=== PATIENT | female | born 1980 | race Caucasian/White ===

== ENCOUNTER 2017-11-16 12:27 | Emergency (ER) | payer OTHER, SELFPAY ==
[2017-11-16] MEDS ORDERED: LIDOCAINE 1% MPF 5 ML VIAL ONE ×2 (13:22→13:52)
--- NOTE | 2017-11-16 14:15 | ER ---
Nurse's Notes [facility] Name: Bianca Tavarez Age: 37 yrs Sex: Female : 1980 Arrival Date: 11/16/2017 Time: 12:28 Bed 15 Private MD: Jose Eduardo Christie E Diagnosis: Laceration without foreign body of right hand Presentation: 11/16 12:30 Presenting complaint: Patient states: She was trying to take apart a metal canopy to aj1 take it out to the trash, as she was bending it the metal broke and cut her right hand. Bleeding in controlled at this time. Transition of care: patient was not received from another setting of care. Complicating Factors: There are no complicating factors for this patient. Onset of symptoms was November 16, 2017 at 10:30. Risk Assessment: Do you want to hurt yourself or someone else? Patient reports no desire to harm self or others. Initial Sepsis Screen: Does the patient meet any 2 criteria? No. Patient's initial sepsis screen is negative. Does the patient have a suspected source of infection? Yes: Skin breakdown/wound. Care prior to arrival: None. 12:30 Method Of Arrival: Ambulatory aj1 12:30 Acuity: NOREEN 4 aj1 Triage Assessment: 12:37 General: Appears in no apparent distress. uncomfortable, Behavior is calm, cooperative, aj1 appropriate for age. Pain: Complains of pain in right hand Pain currently is 10 out of 10 on a pain scale. Neuro: Level of Consciousness is awake, alert, obeys commands. Cardiovascular: Patient's skin is warm and dry. Respiratory: Airway is patent Respiratory effort is even, unlabored, Respiratory pattern is regular, symmetrical. Injury Description: Laceration sustained to right hand is bleeding a small amount. 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 - Social history:: Smoking status: Patient uses tobacco products, smokes one pack cigarettes per day. - Ebola Screening: : Patient denies travel to an Ebola-affected area in the 21 days before illness onset. Screenin:21 Abuse screen: Denies threats or abuse. Denies injuries from another. Nutritional ph screening: No deficits noted. Tuberculosis screening: No symptoms or risk factors identified. Fall Risk None identified. Assessment: 12:45 General: Appears in no apparent distress. uncomfortable, slender, well groomed, ph Behavior is calm, cooperative, appropriate for age. Pain: Complains of pain in right hand. Neuro: Level of Consciousness is awake, alert, obeys commands, Oriented to person, place, time, situation. Cardiovascular: Capillary refill < 3 seconds in bilateral fingers Patient's skin is warm and dry. Pulses are palpable in right radial artery. Respiratory: Airway is patent Respiratory effort is even, unlabored. Derm: Skin is healthy with good turgor, Skin is pink, warm \T\ dry. Musculoskeletal: Circulation, motion, and sensation intact. Range of motion: intact in all extremities. Injury Description: Laceration sustained to palm of right hand is clean, 2.6 to 7.5 cm long, not bleeding. 14:36 Reassessment: Patient appears in no apparent distress at this time. Patient and/or ph family updated on plan of care and expected duration. Pain level reassessed. Patient is alert, oriented x 3, equal unlabored respirations, skin warm/dry/pink. Pt d/c home w/ SO. Vital Signs: 12:37 BP 114 / 86; Pulse 88; Resp 20; Temp 98.6(TE); Pulse Ox 98% on R/A; Weight 63.5 kg (R); aj1 Height 5 ft. 9 in. (175.26 cm) (R); Pain 10/10; 14:39 BP 110 / 78; Pulse 84; Resp 18; Temp 98.0; Pulse Ox 99% on R/A; ph 12:37 Body Mass Index 20.67 (63.50 kg, 175.26 cm) aj1 ED Course: 12:28 Patient arrived in ED. mr 12:29 Jose Eduardo Christie MD is Private Physician. mr 12:35 Justina Jack F[facility]-C [facility]. kb 12:35 aBo Bunch MD is Attending Physician. kb 12:35 Triage completed. aj1 12:37 Arm band placed on Patient placed in an exam room. aj1 13:13 Beverley Orosco, RN is Primary Nurse. ph 13:23 Patient has correct armband on for positive identification. Bed in low position. Call ph light in reach. 14:10 Assist provider with laceration repair on palm of right hand that was between 2.6 to ph 7.5 cm using sutures. Set up tray. Performed by Justina NESS Dressed with 4X4s, Kerlix, Patient tolerated well. 14:38 Patient did not have IV access during this emergency room visit. ph Administered Medications: 14:00 Drug: Lidocaine (1 %) 1 vials Volume: 20 ml; Route: Infiltration; ph 14:36 Follow up: Response: No adverse reaction ph Outcome: 14:14 Discharge ordered by . kb 14:38 Discharged to home ambulatory, with significant other. ph 14:38 Condition: good 14:38 Discharge instructions given to patient, Instructed on discharge instructions, follow up and referral plans. wound care, Demonstrated understanding of instructions, follow-up care, wound care. 14:39 Patient left the ED. ph Signatures: Justina Jack FNP-C FNP-Lucinda Hobbs, RN RN aj1 Lolis Paul mr Beverley Orosco, RN RN ph Corrections: (The following items were deleted from the chart) 12:43 12:37 BP 148 / 6; Pulse 88bpm; Resp 20bpm; Pulse Ox 98% RA; Temp 98.6F Temporal; 63.5 aj1 kg Reported; Height 5 ft. 9 in. Reported; BMI: 20.6; Pain 10/10; aj1
--- NOTE | 2017-11-16 14:15 | EDPHYS ---
Physician Documentation [facility] Name: Bianca Tavarez Age: 37 yrs Sex: Female : 1980 Arrival Date: 11/16/2017 Time: 12:28 Bed 15 Private MD: Jose Eduardo Christie E ED Physician Bao Bunch HPI: 11/16 12:54 This 37 yrs old Female presents to ER via Ambulatory with complaints of kb Laceration To Hand. 12:54 The patient has a laceration related to: taking apart a metal canopy occurred at home, kb and there are no complicating factors. The injury was accidental. The laceration(s) is(are) located on the heel of right hand. Onset: The symptoms/episode began/occurred just prior to arrival. Associated signs and symptoms: The patient has no apparent associated signs or symptoms. The patient has not experienced similar symptoms in the past. The patient has not recently seen a physician. 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 - Social history:: Smoking status: Patient uses tobacco products, smokes one pack cigarettes per day. - Ebola Screening: : Patient denies travel to an Ebola-affected area in the 21 days before illness onset. ROS: 12:54 Constitutional: Negative for fever, chills, and weight loss, Cardiovascular: Negative kb for chest pain, palpitations, and edema, Respiratory: Negative for shortness of breath, cough, wheezing, and pleuritic chest pain, Abdomen/GI: Negative for abdominal pain, nausea, vomiting, diarrhea, and constipation, Back: Negative for injury and pain, : Negative for injury, bleeding, discharge, and swelling, Skin: Negative for injury, rash, and discoloration, Neuro: Negative for headache, weakness, numbness, tingling, and seizure. 12:54 MS/extremity: Positive for injury or acute deformity, laceration, pain, of the heel of right hand. Exam: 12:54 Constitutional: This is a well developed, well nourished patient who is awake, alert, kb and in no acute distress. Head/Face: Normocephalic, atraumatic. Chest/axilla: Normal chest wall appearance and motion. Nontender with no deformity. No lesions are appreciated. Cardiovascular: Regular rate and rhythm with a normal S1 and S2. No gallops, murmurs, or rubs. Normal PMI, no JVD. No pulse deficits. Respiratory: Lungs have equal breath sounds bilaterally, clear to auscultation and percussion. No rales, rhonchi or wheezes noted. No increased work of breathing, no retractions or nasal flaring. Abdomen/GI: Soft, non-tender, with normal bowel sounds. No distension or tympany. No guarding or rebound. No evidence of tenderness throughout. MS/ Extremity: Pulses equal, no cyanosis. Neurovascular intact. Full, normal range of motion. Neuro: Awake and alert, GCS 15, oriented to person, place, time, and situation. Cranial nerves II-XII grossly intact. Motor strength 5/5 in all extremities. Sensory grossly intact. Cerebellar exam normal. Normal gait. 12:54 Skin: injury, laceration(s), the wound is approximately 4 cm(s), of the heel of right hand, that can be described as clean, no foreign body, linear, with mild bleeding. Vital Signs: 12:37 BP 114 / 86; Pulse 88; Resp 20; Temp 98.6(TE); Pulse Ox 98% on R/A; Weight 63.5 kg (R); aj1 Height 5 ft. 9 in. (175.26 cm) (R); Pain 10/10; 14:39 BP 110 / 78; Pulse 84; Resp 18; Temp 98.0; Pulse Ox 99% on R/A; ph 12:37 Body Mass Index 20.67 (63.50 kg, 175.26 cm) aj1 Laceration: 14:13 Wound Repair of 4cm ( 1.6in ) subcutaneous laceration to heel of right hand. Linear kb shaped.. Distal neuro/vascular/tendon intact. Anesthesia: Wound infiltrated with 10 mls of 1% lidocaine. Wound prep: Extensive cleansing with betadine by me, Wound irrigation with saline by il. Skin closed with 9 4-0 Prolene using interrupted sutures and sterile technique. Dressed with Neosporin, 4x4's. Patient tolerated well. MDM: 12:39 Patient medically screened. [facility] 12:56 Data reviewed: vital signs, nurses notes. Data interpreted: Pulse oximetry: on room air kb is 98 %. Interpretation: normal. 12:57 Counseling: I had a detailed discussion with the patient and/or guardian regarding: the kb historical points, exam findings, and any diagnostic results supporting the discharge/admit diagnosis, the need for outpatient follow up, a family practitioner, to return to the emergency department if symptoms worsen or persist or if there are any questions or concerns that arise at home. 11/16 12:56 Order name: Prolene, Sutures; Complete Time: 13:20 kb 11/16 12:56 Order name: Dressing - Wound; Complete Time: 13:19 kb 11/16 12:56 Order name: Gloves, Sterile; Complete Time: 13:19 kb 11/16 12:56 Order name: Setup Suture Tray; Complete Time: 13:20 kb Administered Medications: 14:00 Drug: Lidocaine (1 %) 1 vials Volume: 20 ml; Route: Infiltration; ph 14:36 Follow up: Response: No adverse reaction ph Disposition: 11/17 06:55 Co-signature as Attending Physician, Bao Bunch MD I agree with the assessment and [facility] plan of care. Disposition: 11/16/17 14:14 Discharged to Home. Impression: Laceration without foreign body of right hand. - Condition is Stable. - Discharge Instructions: Laceration Care, Adult, [id number]. - Medication Reconciliation Form, Thank You Letter, Antibiotic Education, Prescription Opioid Use form. - Follow up: Emergency Department; When: As needed; Reason: Worsening of condition. Follow up: Private Physician; When: 2 - 3 days; Reason: Recheck today's complaints, Continuance of care, Re-evaluation by your physician. - Notes: Have sutures removed in 10-14 days Keep clean and dry Watch for signs of infection, including redness, swelling, drainage and warmth Signatures: Justina Jack, CHILD NURSE-C ANNI-Lucinda Hobbs RN RN ajBao Hebert MD MD cha Hall, Patricia, RN RN ph Corrections: (The following items were deleted from the chart) 11/16 14:39 14:14 11/16/2017 14:14 Discharged to Home. Impression: Laceration without foreign body ph of right hand. Condition is Stable. Discharge Instructions: Laceration Care, Adult, [id number]. Forms are Medication Reconciliation Form, Thank You Letter, Antibiotic Education, Prescription Opioid Use. Follow up: Emergency Department; When: As needed; Reason: Worsening of condition. Follow up: Private Physician; When: 2 - 3 days; Reason: Recheck today's complaints, Continuance of care, Re-evaluation by your physician. kb
[2017-11-16 14:46] VITALS: BP 110/78; TEMP 98; O2SAT 99
== END 2017-11-16 14:39 | disposition home or self-care (01) ==
LOC: ER 12:27
PROC: 0JQJ0ZZ Repair Right Hand Subcutaneous Tissue and Fascia, Open Approach (ICD-10-PCS; principal; 2017-11-16)
DX: S61.411A Laceration without foreign body of right hand, initial encounter (principal); W45.8XXA Other foreign body or object entering through skin, initial encounter; Y93.89 Activity, other specified; Y92.009 Unspecified place in unspecified non-institutional (private) residence as the place of occurrence of the external cause; Z98.82 Breast implant status; F17.210 Nicotine dependence, cigarettes, uncomplicated; F90.9 Attention-deficit hyperactivity disorder, unspecified type; F41.9 Anxiety disorder, unspecified
CPT/HCPCS: 99283

== ENCOUNTER 2021-01-05 17:29 | Emergency (ER) | payer SELFPAY ==
[2021-01-05 18:21] LABS: Absolute Lymphocytes (CBC) 1.3 K/uL (0.7-4.9); Hematocrit 42.4 % (36.0-45.0); Lymphocytes % 28.5 % (15.3-44.8); MPV 6.2 fL (7.6-11.3); RBC Red Blood Cell Count 4.28 M/uL (3.86-4.86)
[2021-01-05 18:28] LABS: Protime INR 0.88
[2021-01-05] MEDS ORDERED: MORPHINE 4 MG/ML SYR ONE (18:41)
[2021-01-05] MEDS ORDERED: NA CHLORIDE 0.9% 1,000 ML ONE (18:41)
[2021-01-05] MEDS ORDERED: ONDANSETRON 4 MG/2 ML VIAL ONE (18:41)
[2021-01-05 18:45] LABS: ALT/SGPT 47 U/L (12-78); AST/SGOT 45 U/L (15-37); Albumin 3.7 g/dL (3.4-5.0); Alkaline Phosphatase 100 U/L (45-117); BUN Blood Urea Nitrogen 11 mg/dL (7-18); Bicarbonate 24 mmol/L (21-32); Bilirubin Direct < 0.1 mg/dL (0-0.2); Bilirubin Total 0.1 mg/dL (0.2-1.0); Ferritin 43.5 ng/mL (8-388); Glucose Level 92 mg/dL (74-106); Lipase 122 U/L (73-393); Magnesium 2.1 mg/dL (1.8-2.4); NT PRO-BNP 51 pg/mL (<125); Potassium 3.4 mmol/L (3.5-5.1); Protein, Total 7.5 g/dL (6.4-8.2); Sodium Level 142 mmol/L (136-145); Troponin (Emerg Dept Use Only) < 0.02 ng/mL (0.0-0.045)
[2021-01-05 18:57] LABS: C-Reactive Protein < 2.90 mg/L (<3.00)
--- NOTE | 2021-01-05 19:26 | RAD REPORT ---
EXAM DESCRIPTION: RAD - Chest Single View - 01/05/2021 6:29 pm CLINICAL HISTORY: CHEST PAIN COMPARISON: No comparisons FINDINGS: Lines: None. Lungs: No evidence of edema or pneumonia. Pleural: No significant pleural effusions or pneumothorax. Cardiac: The heart size is within normal limits. Bones: No acute fractures. Other: IMPRESSION: No acute cardiopulmonary disease.
[2021-01-05] MEDS ORDERED: KETOROLAC 30 MG/ML INJ ONE (20:14)
--- NOTE | 2021-01-05 21:24 | RAD REPORT ---
EXAM DESCRIPTION: US - Abdomen Exam Limited - 01/05/2021 9:06 pm CLINICAL HISTORY: elevated liver enzymes COMPARISON: No comparisons FINDINGS: The gallbladder demonstrates no gallstones. No pericholecystic fluid or gallbladder wall t hickening. The common bile duct is normal measuring 2 mm. The liver demonstrates no findings of intrahepatic biliary dilatation. IMPRESSION: Unremarkable examination.
--- NOTE | 2021-01-05 21:37 | ER ---
Nurse's Notes [facility] Name: Bianca Tavarez Age: 40 yrs Sex: Female : 1980 Arrival Date: 01/05/2021 Time: 17:30 Bed 24 Private MD: Diagnosis: Dorsalgia, unspecified;SARS-associated coronavirus as the cause of diseases classified elsewhere Presentation: 01/05 17:34 Chief complaint: Patient states: Can't breath x 2 days. Coronavirus screen: Vaccine ch5 status: Patient reports being unvaccinated. Ebola Screen: Patient negative for fever greater than or equal to 101.5 degrees Fahrenheit, and additional compatible Ebola Virus Disease symptoms Patient denies exposure to infectious person. Patient denies travel to an Ebola-affected area in the 21 days before illness onset. Initial Sepsis Screen: Does the patient meet any 2 criteria? No. Patient's initial sepsis screen is negative. Initial Sepsis Screen: Does the patient have a suspected source of infection? No. Patient's initial sepsis screen is negative. Risk Assessment: Do you want to hurt yourself or someone else?. 17:34 Method Of Arrival: Ambulatory 5 17:34 Acuity: NOREEN 3 ch5 21:51 Onset of symptoms was January 05, 2021. bc5 Triage Assessment: 21:50 General: Appears comfortable, Behavior is calm, cooperative, appropriate for age. bc5 Respiratory: Onset: The symptoms/episode began/occurred today, the patient has mild shortness of breath. - Immunization history:: Adult Immunizations unknown, Client reports having NOT received the Covid vaccine. - Social history:: Smoking status: Patient reports the use of cigarette tobacco products, smokes one pack cigarettes per day. Screenin:41 Abuse screen: Denies threats or abuse. Denies injuries from another. Nutritional ch5 screening: No deficits noted. Tuberculosis screening: No symptoms or risk factors identified. Fall Risk None identified. Assessment: 17:41 Reassessment: No changes from previously documented assessment. Pain: Complains of pain ch5 in ACHING ALL OVER. Respiratory: Reports shortness of breath cough that is labored breathing pain with respiration Airway is patent Respiratory effort is even, 19:21 Reassessment: Initial contact. pt laying down in stretcher with eyes open, RR is even bc5 and unlabored, speaking in clear and complete sentences at this time, c/o continued back pain "the morphine helped but the pain is back", will let provider know. VSS, NAD, WCTM. Cardiovascular: Rhythm is regular. Vital Signs: 17:34 BP 137 / 88; Pulse 74; Resp 24; Temp 98.4; Pulse Ox 99% ; Weight 58.97 kg; Height 5 ft. ch5 9 in. (175.26 cm); Pain 9/10; 18:54 BP 134 / 88; Pulse 62; Resp 22; Pulse Ox 100% on R/A; es2 19:41 BP 136 / 92; Pulse 81; Resp 17; Temp 98.5(O); Pulse Ox 100% on R/A; Pain 8/10; bc5 21:52 BP 125 / 88; Pulse 75; Resp 15; Temp 98(O); Pulse Ox 97% on R/A; Pain 2/10; bc5 17:34 Body Mass Index 19.20 (58.97 kg, 175.26 cm) ch5 ED Course: 17:30 Patient arrived in ED. am2 17:34 Sandy Ochoa, RN is Primary Nurse. es2 17:40 Triage completed. ch5 17:41 Patient has correct armband on for positive identification. ch5 17:45 Bao Cohen PA is PHCP. cp 17:45 Bao Bunch MD is Attending Physician. cp 18:14 Lipase Sent. es2 18:14 Basic Metabolic Panel Sent. es2 18:14 CBC with Automated Diff Sent. es2 18:14 Ferritin Sent. es2 18:14 D-Dimer Sent. es2 18:14 CRP Sent. es2 18:15 Liver (Hepatic) Function Sent. es2 18:16 Inserted saline lock: 20 gauge in right antecubital area, using aseptic technique. es2 Blood collected. 18:21 Basic Metabolic Panel Sent. es2 18:21 CBC with Diff Sent. es2 18:21 LFT's Sent. es2 18:21 Magnesium Sent. es2 18:21 NT PRO-BNP Sent. es2 18:21 PT-INR Sent. es2 18:21 Troponin (emerg Dept Use Only) Sent. es2 18:30 XRAY Chest (1 view) In Process Unspecified. EDMS 18:37 Basic Metabolic Panel Sent. es2 18:37 Liver (Hepatic) Function Sent. es2 18:37 Lipase Sent. es2 18:38 CRP Sent. es2 18:38 Influenza Screen (a \\T\\ B) Sent. es2 18:55 Patient notified of wait time. es2 18:55 No provider procedures requiring assistance completed. es2 19:12 Primary Nurse role handed off by Sandy Ochoa RN bc5 19:12 Barbara Green, VIELKA is Primary Nurse. bc5 19:13 Barbara Green RN is Primary Nurse. bc5 21:06 US Abdomen Limited: liver/gallbladder In Process Unspecified. EDMS 21:27 Notified Nurse Practitioner and/or Physician Process Development Engineer of a critical lab result(s), miguelina TELLO positiveBao notified. 21:52 IV discontinued, intact, bleeding controlled, No redness/swelling at site. Pressure bc5 dressing applied. Administered Medications: 18:20 Drug: Zofran (Ondansetron) 4 mg Route: IVP; Site: right antecubital; es2 18:37 Follow up: Response: No adverse reaction es2 18:20 Drug: morphine 4 mg Route: IVP; Site: right antecubital; es2 18:37 Follow up: Response: No adverse reaction es2 18:21 Drug: NS 0.9% 1000 ml Route: IV; Rate: 1 bolus; Site: right antecubital; es2 18:37 Follow up: Response: No adverse reaction es2 19:54 Drug: Ketorolac 15 mg Route: IVP; Site: right antecubital; bc5 21:53 Follow up: Response: Pain is decreased 5 Outcome: 21:37 Discharge ordered by . cp 21:50 Discharged to home ambulatory. bc5 21:50 Condition: improved 21:50 Discharge instructions given to patient, Instructed on discharge instructions, follow up and referral plans. Prescriptions given X 3. 21:53 Patient left the ED. 5 Signatures: Dispatcher [facility] Elizabeth Beck RN RN bb Page, Corey, PA PA cp Moreno, Amanda am2 Heath, Christopher, RN RN 5 Barbara Green RN RN bc5 Sandy Ochao RN RN es2 Corrections: (The following items were deleted from the chart) 17:41 17:40 PMHx: ADD/ADHD; [place] [id number] 17:41 17:40 PMHx: Anxiety; [place] [id number] 20:34 18:38 CORONAVIRUS+MR.LAB.BRZ drawn and sent. es2 EDMS
--- NOTE | 2021-01-05 21:37 | EDPHYS ---
Physician Documentation [facility] Name: Bianca Tavarez Age: 40 yrs Sex: Female : 1980 Arrival Date: 01/05/2021 Time: 17:30 Bed 24 Private MD: ED Physician Bao Bunch HPI: 01/05 18:00 This 40 yrs old Female presents to ER via Ambulatory with complaints of cp Breathing Difficulty. 18:00 The patient has shortness of breath with light activity. cp 18:00 Onset: The symptoms/episode began/occurred 2 day(s) ago. cp 18:00 Associated signs and symptoms: Pertinent positives: non-productive cough, right mid to cp upper back pain, Pertinent negatives: chest pain, diaphoresis, fever, numbness in extremities. Severity of symptoms: in the emergency department the symptoms are unchanged despite home interventions. Patient reports boyfriend and family member recently tested positive for COVID-19. - Immunization history:: Adult Immunizations unknown, Client reports having NOT received the Covid vaccine. - Social history:: Smoking status: Patient reports the use of cigarette tobacco products, smokes one pack cigarettes per day. ROS: 18:05 Constitutional: Negative for body aches, chills, fever, poor PO intake. cp 18:05 Eyes: Negative for injury, pain, redness, and discharge. cp 18:05 ENT: Negative for ear pain, sore throat, difficulty swallowing, difficulty handling secretions. 18:05 Neck: Negative for stiffness. 18:05 Cardiovascular: Negative for chest pain, edema, palpitations. 18:05 Respiratory: Positive for cough, with no reported sputum, shortness of breath, Negative for wheezing. 18:05 Abdomen/GI: Negative for abdominal pain, nausea, vomiting, and diarrhea. 18:05 Back: Positive for pain at rest, pain with movement, of the right scapular area and right subscapular area. 18:05 : Negative for urinary symptoms. 18:05 Neuro: Negative for altered mental status, headache, syncope, weakness. 18:05 All other systems are negative. Exam: 18:10 Constitutional: The patient appears in no acute distress, alert, awake, cp non-diaphoretic, non-toxic, well developed, well nourished, anxious, uncomfortable. 18:10 Head/Face: Normocephalic, atraumatic. cp 18:10 Eyes: Periorbital structures: appear normal, Conjunctiva: normal, no exudate, no injection, Sclera: no appreciated abnormality, Lids and lashes: appear normal, bilaterally. 18:10 ENT: External ear(s): are unremarkable, Ear canal(s): are normal, clear, TM's: dullness, bilaterally, Nose: is normal, Mouth: Lips: moist, Oral mucosa: pink and intact, moist, Posterior pharynx: Airway: no evidence of obstruction, patent, Tonsils: are normal in appearance, swelling, is not appreciated, erythema, is not appreciated, exudate, is not appreciated. 18:10 Neck: ROM/movement: is normal, is supple, without pain, no range of motions limitations, no meningismus. 18:10 Chest/axilla: Inspection: normal, Palpation: is normal, no crepitus, no tenderness. 18:10 Cardiovascular: Rate: normal, Rhythm: regular, Heart sounds: murmur, not appreciated, Edema: is not appreciated, JVD: is not appreciated. 18:10 Respiratory: the patient does not display signs of respiratory distress, Respirations: normal, no use of accessory muscles, no retractions, labored breathing, is not present, Breath sounds: are clear throughout, no decreased breath sounds, no stridor, no wheezing. 18:10 Abdomen/GI: Inspection: abdomen appears normal, Bowel sounds: active, all quadrants, Palpation: abdomen is soft and non-tender, in all quadrants. 18:10 Back: pain, that is moderate, of the right scapular area and right subscapular area, ROM is painful, with all movement, CVA tenderness, is absent, vertebral tenderness, is not appreciated. 18:10 Skin: cellulitis, is not appreciated, no rash present. 18:10 Neuro: Orientation: to person, place \T\ time. Mentation: is normal, Motor: moves all fours, strength is normal, Sensation: is normal. 18:35 ECG was reviewed by the Attending Physician. cp Vital Signs: 17:34 BP 137 / 88; Pulse 74; Resp 24; Temp 98.4; Pulse Ox 99% ; Weight 58.97 kg; Height 5 ft. ch5 9 in. (175.26 cm); Pain 9/10; 18:54 BP 134 / 88; Pulse 62; Resp 22; Pulse Ox 100% on R/A; es2 19:41 BP 136 / 92; Pulse 81; Resp 17; Temp 98.5(O); Pulse Ox 100% on R/A; Pain 8/10; bc5 21:52 BP 125 / 88; Pulse 75; Resp 15; Temp 98(O); Pulse Ox 97% on R/A; Pain 2/10; bc5 17:34 Body Mass Index 19.20 (58.97 kg, 175.26 cm) ch5 MDM: 17:50 Patient medically screened. cp 21:35 Data reviewed: vital signs, nurses notes, lab test result(s), EKG, radiologic studies, cp plain films. 21:35 Differential diagnosis: Anxiety Reaction Bronchitis pneumonia, Pneumothorax pulmonary cp edema, Pulmonary Embolism Sepsis Unstable Angina. Test interpretation: by ED physician or midlevel provider: ECG, plain radiologic studies. Counseling: I had a detailed discussion with the patient and/or guardian regarding: the historical points, exam findings, and any diagnostic results supporting the discharge/admit diagnosis, lab results, radiology results, to return to the emergency department if symptoms worsen or persist or if there are any questions or concerns that arise at home. Response to treatment: the patient's symptoms have markedly improved after treatment. ED course: VSS. Pain improved with meds. Patient appears non-toxic and no signs of respiratory distress. Will discharge to home for continued monitoring. 01/05 17:51 Order name: Influenza Screen (a \T\ B); Complete Time: 19:29 cp 01/05 18:01 Order name: Basic Metabolic Panel cp 01/05 18:01 Order name: CBC with Diff cp 01/05 18:01 Order name: LFT's cp 01/05 18:01 Order name: Magnesium; Complete Time: 19:29 cp 01/05 18:01 Order name: NT PRO-BNP; Complete Time: 19:29 cp 01/05 18:01 Order name: PT-INR; Complete Time: 18:41 cp 01/05 18:01 Order name: Troponin (emerg Dept Use Only); Complete Time: 19:29 cp 01/05 18:01 Order name: CRP; Complete Time: 19:29 cp 01/05 18:01 Order name: D-Dimer; Complete Time: 18:41 cp 01/05 18:01 Order name: Ferritin; Complete Time: 19:29 cp 01/05 18:01 Order name: Lipase; Complete Time: 19:29 cp 01/05 18:01 Order name: Basic Metabolic Panel; Complete Time: 19:29 EDMS 01/05 20:49 Interpretation: Normal except: K 3.4; CL 109; GFR 88; CA 8.3. cp 01/05 18:01 Order name: XRAY Chest (1 view); Complete Time: 19:29 cp 01/05 21:30 Interpretation: Report review. cp 01/05 18: Order name: EKG; Complete Time: 18:02 cp 01/05 18:01 Order name: Cardiac monitoring; Complete Time: 18:26 cp 01/05 18: Order name: EKG - Nurse/Tech; Complete Time: 18:26 cp 01/05 18:01 Order name: IV Saline Lock; Complete Time: 18:14 cp 01/05 18:01 Order name: Labs collected and sent; Complete Time: 18:26 cp 01/05 18: Order name: O2 Per Protocol; Complete Time: 18:26 cp 01/05 18: Order name: O2 Sat Monitoring; Complete Time: 18:26 cp 01/05 18:01 Order name: CBC with Automated Diff; Complete Time: 18:41 EDMS 01/05 20:12 Interpretation: Normal except: MCV 99.1; MPV 6.2; MN% 12.5. cp 01/05 18:01 Order name: Liver (Hepatic) Function; Complete Time: 19:29 EDMS 01/05 20:12 Interpretation: Normal except: AST 45; BILIT 0.1; GLOB 3.8; A/G 1.0. cp 01/05 19:30 Order name: US Abdomen Limited: liver/gallbladder; Complete Time: 21:27 cp 01/05 21:27 Interpretation: Report reviewed. cp 01/05 21:27 Order name: SARS-COV-2 RT PCR; Complete Time: 21:29 EDMS EC:35 Rate is 60 beats/min. Rhythm is regular. MA interval is normal. QRS interval is normal. cp QT interval is normal. T waves are Inverted in lead aVR. Interpreted by me. Reviewed by me. Administered Medications: 18:20 Drug: Zofran (Ondansetron) 4 mg Route: IVP; Site: right antecubital; es2 18:37 Follow up: Response: No adverse reaction es2 18:20 Drug: morphine 4 mg Route: IVP; Site: right antecubital; es2 18:37 Follow up: Response: No adverse reaction es2 18:21 Drug: NS 0.9% 1000 ml Route: IV; Rate: 1 bolus; Site: right antecubital; es2 18:37 Follow up: Response: No adverse reaction es2 19:54 Drug: Ketorolac 15 mg Route: IVP; Site: right antecubital; bc5 21:53 Follow up: Response: Pain is decreased bc5 Disposition: 01/06 06:40 Co-signature as Attending Physician, Bao Bunch MD I agree with the assessment and tatyana plan of care. Disposition Summary: 01/05/21 21:37 Discharge Ordered Location: Home cp Problem: new cp Symptoms: have improved cp Condition: Stable cp Diagnosis - Dorsalgia, unspecified cp - SARS-associated coronavirus as the cause of diseases classified elsewhere cp Followup: cp - With: Private Physician - When: 2 - 3 days - Reason: Worsening of condition Discharge Instructions: - Discharge Summary Sheet cp - Acute Back Pain, Adult cp - COVID-19 cp - Things to Know about the COVID-19 Pandemic - [facility] cp - 10 Things You Can Do to Manage Your COVID-19 Symptoms at Home - [facility] cp - COVID-19: Quarantine vs. Isolation - [facility] cp - Prevent the Spread of COVID-19 if You Are Sick - [facility] cp Forms: - Medication Reconciliation Form cp - Thank You Letter cp - Antibiotic Education cp - Prescription Opioid Use cp Prescriptions: - Lidoderm 5 % Topical adhesive patch,medicated - apply 1 patch by TOPICAL route once daily; 1 box; Refills: 0, Product Selection cp Permitted - albuterol sulfate 90 mcg/actuation Inhalation HFA aerosol inhaler - inhale 2 puff by INHALATION route every 4-6 hours; 1 Inhaler; Refills: 0, cp Product Selection Permitted - Diclofenac Sodium 75 mg Oral tablet,delayed release (DR/EC) - take 1 tablet by ORAL route 2 times per day; 20 tablet; Refills: 0, Product cp Selection Permitted Signatures: Dispatcher [employer] Bao Mchugh MD MD cha Attema, Lee, FIELD HANDYMAN-C FIELD HANDYMAN-Cla1 Bao Cohen PA PA cp Toro Alston, RN RN ch5 Barbara Green, RN RN bc5 Sandy Ochoa, RN RN es2 Corrections: (The following items were deleted from the chart) 01/05 17:41 17:40 PMHx: ADD/ADHD; ch5 ch5 17:41 17:40 PMHx: Anxiety; ch5 5 20:34 17:51 CORONAVIRUS+MR.LAB.BRZ ordered. EDMS EDMS 20:49 20:11 Normal except: K 3.4; CL 109; GFR 88. cp cp
[2021-01-05 22:07] VITALS: BP 125/88; TEMP 98; O2SAT 97
== END 2021-01-05 21:53 | disposition home or self-care (01) ==
LOC: ER 17:29
DX: U07.1 COVID-19 (principal); M54.9 Dorsalgia, unspecified
CPT/HCPCS: 36415; 71045; 76705; 80048; 80076; 82728; 83690; 83735; 83880; 84484; 85025; 85379; 85610; 86140; 87804; 93005; 96374; 96375; 99284; J2405; J7030; U0003